=== PATIENT | male | born 2000 | race Caucasian/White ===

== ENCOUNTER 2018-05-13 10:13 | Emergency (ER) | payer OTHER ==
[2018-05-13] MEDS ORDERED: BUPIVACAINE 0.25% (MPF) 10 ML 10 ML VIAL INJ (11:30)
[2018-05-13] MEDS: LIDOCAINE 1% (MDV) 10 ML INJ INFIL (11:44)
[2018-05-13] MEDS: LIDOCAINE 1% (MPF) 5 ML VIAL INJ (11:44)
[2018-05-13] MEDS: BUPIVACAINE 0.25% (MPF) 30 ML INJ INJ (11:44)
== END 2018-05-13 13:14 | disposition home or self-care (01) ==
LOC: FTE 13:14
DX: L60.0 Ingrowing nail (principal)
CPT/HCPCS: 11750; 99283-25

== ENCOUNTER 2018-12-01 08:44 | Emergency (ER) | payer OTHER | END 2018-12-01 09:35 | disposition home or self-care (01) | LOC: FTE 09:35 | DX: L03.032 Cellulitis of left toe (principal) | CPT/HCPCS: 99283; Z7502 ==

== ENCOUNTER 2019-02-15 09:17 | Emergency (ER) | payer OTHER ==
[2019-02-15] MEDS: SOD CHLORIDE 0.9% 1,000 ML IV (09:57)
[2019-02-15] MEDS: KETOROLAC 15 MG INJ IV (09:57)
[2019-02-15 10:06] LABS: ADD MAN DIFF? NO
[2019-02-15 10:13] LABS: BASOPHILS % 0.5 % (0.0-2.0); EOSINOPHILS # 0.2 10^3/ul (0.0-0.5); EOSINOPHILS % 2.6 % (0.0-7.0); HEMATOCRIT 45.5 % (42.0-52.0); HEMOGLOBIN 14.5 g/dl (14.0-18.0); LYMPHOCYTES # 1.6 10^3/ul (0.8-2.9); LYMPHOCYTES % 18.4 % (18.0-55.0); MEAN CORPUSCULAR HGB CONC 31.9 g/dl (32.0-37.0); MEAN CORPUSCULAR VOLUME 78.3 fl (72.0-104.0); MEAN PLATELET VOLUME 9.1 fl (7.4-10.4); MONOCYTE # 0.7 10^3/ul (0.3-0.9); MONOCYTES % 7.8 % (0.0-13.0); NEUTROPHILS % 70.3 % (30.0-74.0); PLATELET COUNT 332 10^3/UL (140-415); RED BLOOD COUNT 5.81 10^6/ul (4.70-6.10); RED CELL DISTRIBUTION WIDTH 15.8 % (11.5-14.5)
[2019-02-15 10:13] LABS: WHITE BLOOD COUNT 8.5 10^3/ul (4.8-10.8)
[2019-02-15 10:32] LABS: ANION GAP 9 (5-13); BLOOD UREA NITROGEN 21 mg/dl (7-20); CALCIUM 9.5 mg/dl (8.4-10.2); CARBON DIOXIDE 28 mmol/L (21-31); CHLORIDE 106 mmol/L (97-110); CREATININE 1.05 mg/dl (0.61-1.24); Estimated GFR > 60 mL/min (>60); GLUCOSE 112 mg/dl (70-220); POTASSIUM 4.5 mmol/L (3.5-5.1); SODIUM 143 mmol/L (135-144)
[2019-02-15] MEDS: ASPIRIN 81 MG TAB PO (11:09)
== END 2019-02-15 14:38 | disposition home or self-care (01) ==
LOC: E/R 09:17
DX: I30.9 Acute pericarditis, unspecified (principal)
CPT/HCPCS: 36415; 71045; 80048; 84484; 85025; 93005; 96374; 99285-25